=== PATIENT | male | born 1930 | race Caucasian/White ===

== ENCOUNTER 2016-11-04 14:22 | Outpatient (CLI) | payer BC ==
[~2016-11-04] VITALS: Ht 165.1 cm; Wt 79.4 kg
--- NOTE | 2016-11-04 02:30 | NUR ---
Social service consult requested by Dr. Isaacs to asses for patients social support. Patient is an 86 year old male who is oriented x4. Patient appeared stated age and was well groomed. Patient was cooperative and pleasant. Patient appeared to be in a good mood and was making jokes during the assessment. Patients affect was congruent with his mood. Patients insight and judgement are fair. Patient has three children who appear to be involved in his care and have been the patients support system. Patient stated that he is currently living with his son in [place]. Patient was accompanied by his daughter Wen Monaco who stated that she would like patient to get more exercise and would like home health services to have someone come help patient get some exercise. Per patient, he has never been in a psychiatric hospital. Patient denies having a hx of alcohol or drug abuse. Patient denies S/H ideation and A/V hallucinations. Plan: Patient will return home with his son [address] [facility] [place] [address]. Patient will follow-up with Dr. Isaacs. Patients contact is his daughter Wen Monaco . PAT informed Dr. Isaacs of patients daughter request for home health and physical therapy. PAT will follow-up with Dr. Isaacs regarding the home health order. PAT informed patient and patients daughter she is available if needed.
[2016-11-04 14:40] VITALS: BP_SYST 110; BP_SYST 141; BP_DIAS 50; BP_DIAS 68
== END 2016-11-04 23:59 | disposition home or self-care (01) ==
LOC: CSC 14:22
PROVIDERS: ATTEND Internal Medicine
DX: G31.84 Mild cognitive impairment of uncertain or unknown etiology (principal); I42.9 Cardiomyopathy, unspecified; I11.0 Hypertensive heart disease with heart failure; I25.10 Atherosclerotic heart disease of native coronary artery without angina pectoris; I50.9 Heart failure, unspecified; I95.1 Orthostatic hypotension; I25.2 Old myocardial infarction; N39.41 Urge incontinence; M19.90 Unspecified osteoarthritis, unspecified site; Z87.891 Personal history of nicotine dependence; Z95.1 Presence of aortocoronary bypass graft; Z79.899 Other long term (current) drug therapy; Z95.810 Presence of automatic (implantable) cardiac defibrillator
CPT/HCPCS: G0463